=== PATIENT | male | born 1975 | race African-American/Black ===

== ENCOUNTER 2018-08-25 18:06 | Emergency (ER) | payer SELFPAY ==
[2018-08-25] MEDS ORDERED: Ketorolac Tromethamine 30 MG/ML VIAL ONE (18:27)
[2018-08-25 18:36] LABS: Bilirubin Negative (Negative); Blood, Urine Large (Negative); Clarity TURBID (Clear); Glucose, Urine (Dipstick) Negative (Negative); Leukocyte Large (Negative); Nitrite Negative (Negative); Protein, Urine (Dipstick) 100 mg/dL (Neg-Trace); Specific Gravity, Urine 1.011 (1.002-1.036)
[2018-08-25 18:39] LABS: Hyaline Casts/LPF 0-3 HYALINE CAST LPF (0-3 Hyaline); Pathc Cast-AUWi Flag 0.72 (0-2.49); RBC/HPF 21-50 HPF (0-3); Squamous Epithelial None Seen HPF (0-3)
[2018-08-25 18:40] LABS: Yeast-AUWi Flag 64.8 (0-25.0)
[2018-08-25 18:48] LABS: Bacteria/HPF 1+ HPF (None Seen); Yeast-All Forms None Seen HPF (None Seen)
[2018-08-25 19:26] LABS: #Monocytes 1.3 thou/uL (0.11-0.59); #Neutrophils 10.6 thou/uL (1.40-6.50); %Basophils 0.2 % (0.0-1.0); %Eosinophils 0.1 % (0.0-10.0); %Lymphocytes 7.5 % (21.0-51.0); %Neutrophils 82.2 % (42.0-75.0); Mean Corpuscular HGB CONC 33.4 g/dL (32.0-36.0); Mean Corpuscular Hemoglobin 27.2 pg (27.0-31.0); Mean Corpuscular Volume 81.5 fL (78.0-98.0); Mean Platelet Volume 7.6 fL (7.4-10.4); Platelet Count 270 thou/uL (130-400); RBC Distribution Width 12.6 % (11.5-14.5); Red Blood Cell (RBC) Count 4.79 mill/uL (4.70-6.10); White Blood Cell (WBC) Count 12.9 thou/uL (4.8-10.8)
[2018-08-25 19:48] LABS: ALT (SGPT) 35 U/L (8-55); AST (SGOT) 29 U/L (5-34); Albumin 3.8 g/dL (3.5-5.0); Alkaline Phosphatase 98 U/L (40-150); Anion Gap 13 mmol/L (10-20); BUN (Urea Nitrogen) 10 mg/dL (8.9-20.6); Bilirubin, Total 1.9 mg/dL (0.2-1.2); Calc. Creatinine Clearance 0 mL/min (70-130); Carbon Dioxide 22 mmol/L (22-29); Chloride 103 mmol/L (98-107); Estimated GFR-MDRD Greater than 90; Globulin 3.3 g/dL (2.4-3.5); Glucose 146 mg/dL (70-105); Lipase 5 U/L (8-78); Potassium 3.9 mmol/L (3.5-5.1); Protein, Total 7.1 g/dL (6.0-8.3); Sodium 134 mmol/L (136-145)
[2018-08-25] MEDS ORDERED: Azithromycin 250 MG TAB ONE (20:32)
[2018-08-25] MEDS ORDERED: cefTRIAXone\\ROCEPHIN 1 GM VIAL ONE (20:32)
--- NOTE | 2018-08-25 21:15 | CT ---
CT OF ABDOMEN AND PELVIS PERFORMED WITHOUT CONTRAST ENHANCEMENT: 08/25/18 HISTORY: Right flank pain. The lung bases are clear. The liver, spleen, pancreas, gallbladder regions appear unremarkable given the limitations of a nonco ntrast study. The right and left adrenal glands are normal in appearance. Right and left kidneys are normal in size . There is an approximately 5 to 6 mm mid pole right renal calculus. There is some mild right sided h ydronephrosis and hydroureter with some periureteral fat stranding, also with some fat stranding celina g the inferior margin of the right kidney. The ureter distally does not appear significantly dilated and I do not see a definite distal ureteral calculus. No left sided renal calculi are seen. There is a hypodensity within the left kidney in the lower pole region statistically most likely a cyst. There is no significant periaortic or mesenteric adenopathy. CT OF PELVIS PERFORMED WITHOUT CONTRAST ENHANCEMENT: The bladder is not fully distended although there is suggestion of some slight bladder wall thickenin g. This could be on the basis of underdistention. The appendix is difficult to definitely identified, but I see what I believe to be a portion of a nondilated appendix. No free fluid. No bladder calculu s identified. IMPRESSION: 1. Approximately 5 to 6 mm mid pole right renal calculus. In addition, there is right sided hydr onephrosis and some mild dilatation to the proximal right ureter to approximately L5. At this level, the ureter does not appear definitely dilated and I do not see a distal ureteral calculus. There is p eriureteral fat stranding along the proximal right ureter. This would suggest possibly there has been a passed stone. Another possibility is that the calculus which is now seen within the right kidney m ay have been within the ureter and then passed back into the kidney as a somewhat less likely possibi lity. 2. Although the bladder is not optimally distended, there is suggestion of some bladder wall thi ckening. 3. Probable left renal cyst. POS: BELLO
== END 2018-08-25 20:46 | disposition home or self-care (01) ==
LOC: ERS 18:06
DX: N13.2 Hydronephrosis with renal and ureteral calculous obstruction (principal); N12 Tubulo-interstitial nephritis, not specified as acute or chronic
CPT/HCPCS: 36415; 74176; 80053; 81003; 81015; 83690; 85025; 87077; 87086; 87186; 87491; 87591; 96361; 96374; 96375; J0696; J1885

== ENCOUNTER 2022-07-21 22:45 | Emergency (ER) | payer SELFPAY ==
[2022-07-21] MEDS ORDERED: Ketorolac Tromethamine 30 MG/ML VIAL ONE (23:08)
[2022-07-21 23:20] LABS: #Eosinphils 0.1 thou/uL (0.0-0.7); #Lymphocytes 2.2 thou/uL (1.20-3.40); #Monocytes 0.7 thou/uL (0.11-0.59); #Neutrophils 10.7 thou/uL (1.40-6.50); %Basophils 0.2 % (0.0-1.0); %Eosinophils 0.6 % (0.0-10.0); %Lymphocytes 16.2 % (21.0-51.0); Hemoglobin 12.9 g/dL (14.0-18.0); Mean Corpuscular HGB CONC 32.4 g/dL (32.0-36.0); Mean Corpuscular Hemoglobin 26.6 pg (27.0-31.0); Mean Corpuscular Volume 82.2 fl (78.0-98.0); Mean Platelet Volume 7.6 fL (7.4-10.4); Platelet Count 288 thou/uL (130-400); RBC Distribution Width 12.6 % (11.5-14.5); Red Blood Cell (RBC) Count 4.85 mill/uL (4.70-6.10); White Blood Cell (WBC) Count 13.7 thou/uL (4.8-10.8)
[2022-07-21 23:36] LABS: ALT (SGPT) 18 U/L (8-55); AST (SGOT) 18 U/L (5-34); Acetaminophen Less than 10.0 mcg/mL (10.0-30.0); Albumin 4.3 g/dL (3.5-5.0); Alcohol Less than 10 mg/dL (Less than 10); Alkaline Phosphatase 109 U/L (40-110); Anion Gap 13 mmol/L (10-20); BUN (Urea Nitrogen) 10 mg/dL (8.9-20.6); Bilirubin, Total 0.9 mg/dL (0.2-1.2); Calc. Creatinine Clearance 0 mL/min (70-130); Calcium 9.8 mg/dL (7.8-10.44); Carbon Dioxide 28 mmol/L (22-29); Chloride 102 mmol/L (98-107); Estimated GFR 81; Globulin 3.3 g/dL (2.4-3.5); Glucose 140 mg/dL (70-105); Lipase 20 U/L (8-78); Potassium 3.5 mmol/L (3.5-5.1); Protein, Total 7.6 g/dL (6.0-8.3); Salicylate Less than 8.0 mg/dL (15.0-30.0); Sodium 139 mmol/L (136-145)
[2022-07-22 01:11] LABS: Amphetamine Detected (NotDetected); Barbiturates Screen Not Detected (NotDetected); Benzodiazepine Screen Not Detected (NotDetected); Cocaine Metabolite Screen Not Detected (NotDetected); Methadone Not Detected (NotDetected); Methamphetamine Detected (NotDetected); Opiate Screen Not Detected (NotDetected); Oxycodone Screen Not Detected (NotDetected); Phencyclidine (PCP) Not Detected (NotDetected); THC/Cannabinoid Screen Detected (NotDetected); Tricyclic Screen Not Detected (NotDetected)
[2022-07-22 01:34] LABS: Bilirubin Negative (Negative); Blood, Urine Negative (Negative); Clarity Clear (Clear); Glucose, Urine (Dipstick) Normal (Negative); Ketone, Urine Negative (Negative); Leukocyte 75 Leu/uL (Negative); Mucous/LPF Rare LPF (<2+); Nitrite Negative (Negative); Protein, Urine (Dipstick) Negative (Neg-Trace); Specific Gravity, Urine 1.011 (1.002-1.036); Squamous Epithelial 0-3 HPF (0-3); Urobilinogen Normal mg/dL (Less than 2); WBC/HPF 21-50 HPF (0-3)
[2022-07-22 01:41] LABS: Bacteria/HPF 1+ HPF (None Seen)
[2022-07-22] MEDS ORDERED: cefTRIAXone\\ROCEPHIN 2 GM VIAL ONE (02:25)
== END 2022-07-22 03:07 | disposition home or self-care (01) ==
LOC: ERS 22:45
DX: N20.1 Calculus of ureter (principal); N39.0 Urinary tract infection, site not specified; R41.82 Altered mental status, unspecified; F15.10 Other stimulant abuse, uncomplicated
CPT/HCPCS: 36416; 70450; 74176; 80053; 80306; 80307; 81003; 81015; 83690; 84484; 85025; 87077; 87086; 87186; 93005; 96374; 96375; J0696; J1885

== ENCOUNTER 2022-11-07 18:12 | Emergency (ER) | payer SELFPAY ==
[2022-11-07] MEDS ORDERED: Lidocaine 1% PF 5 ML VIAL ONE (20:41)
[2022-11-07] MEDS ORDERED: Boostrix 0.5 ML (Tdap) VIAL (>/=7 yrs of age) ONE (21:00)
[2022-11-07] MEDS ORDERED: Sulfameth/Trimethoprim DS 800-160mg TAB ONE (21:00)
== END 2022-11-07 21:22 | disposition home or self-care (01) ==
LOC: ERS 18:12
DX: L03.011 Cellulitis of right finger (principal); Z23 Encounter for immunization
CPT/HCPCS: 10060; 90471; 90715